=== PATIENT | female | born 1950 | race Caucasian/White ===

== ENCOUNTER 2017-10-27 07:11 | Day surgery (SDC) | END 2017-10-27 14:40 | disposition home or self-care (01) ==

== ENCOUNTER 2018-08-24 12:42 | Day surgery (SDC) | payer OTHER, MEDICAID ==
[2018-08-24] VITALS (17 sets, daily range): BP systolic 97–134; BP diastolic 46–73; PULSE 78–94; RESP 11–27; Ht 157.5 cm; Wt 48.4 kg
[~2018-08-24] VITALS: Ht 157.5 cm; Wt 48.4 kg
[~2018-08-24 12:42] MED LIST: CLINDAMYCIN 900 MG/D5W (PMX) 50 ML IVPB SCH; DILT240C62 PO; ISON100T4 PO; LACTATED RINGER'S 1,000 ML IV ONE; PYRI50CA PO; RANI150T5 PO; TOFA5TAB PO
[2018-08-24] MEDS ORDERED: TOFA5TAB PO (13:50)
[2018-08-24] MEDS ORDERED: LOSA50TA14 PO (13:50)
[2018-08-24] MEDS ORDERED: LIDOCAINE 1% (MPF) 30 ML INJ INJ ONE (14:21)
--- NOTE | 2018-08-24 14:50 | PREAC ---
Date/Time of Note Date/Time of Note DATE: 08/24/18 TIME: 14:41 Anesthesia Eval and Record Evaluation Time Pre-Procedure Interview DATE: 08/24/18 TIME: 14:41 Age 68 Sex female NPO: 8 hrs Preoperative diagnosis Rheumatoid Arthritis Deformity of left hand Planned procedure open reduction of left index, middle, ring and small fingers metacarpophalangeal joint dislocations with centralization/transfer of left index, middle, ring, small finger extensor tendons with collateral ligament repair/reconstruction of left index, middle, ring and small fingers at the metacarpophalangeal joints. Past Medical History Past Medical History: Includes Cardio: HTN Musculoskeletal: Rheumatoid arthritis GI: GERD Heme: Anemia Surgery & Anesthesia Issues No known issue Meds Anticoagulation: No Beta Himanshu within 24 hr: No Reason Beta Himanshu not given: Pt. not on B-Himanshu Reported Medications Losartan Potassium* (Losartan Potassium*) 50 Mg Tablet, 50 MG PO DAILY, TAB 08/24/18 Tofacitinib Citrate (XELJANZ) 5 Mg Tablet, 5 MG PO DAILY, TAB 08/24/18 Diltiazem Hcl* (Cartia XT*) 240 Mg Cap.sr.24h, 240 MG PO DAILY, #30 CAP 10/27/17 Ranitidine Hcl* (Ranitidine Hcl*) 150 Mg Tablet, 150 MG PO Q12, #60 TAB 10/27/17 Discontinued Reported Medications Tofacitinib Citrate (XELJANZ) 5 Mg Tablet, 5 MG PO BID, TAB 10/27/17 Pyridoxine Hcl* (Vitamin B-6*) 50 Mg Capsule, 50 MG PO DAILY, CAP 10/27/17 Isoniazid* (Isoniazid*) 100 Mg Tablet, 100 MG PO DAILY, TAB 10/27/17 Current Medications Clindamycin HCl/ Dextrose 50 ml @ 100 mls/hr PRE-OP IVPB ; Start 08/24/18 at 06:00; Stop 08/24/18 at 15:00 Lactated Ringer's 1,000 ml @ 20 mls/hr Q24H ONCE IV ; Start 08/24/18 at 06:00; Stop 08/25/18 at 05:59 Meds reviewed: Yes Allergies Coded Allergies: Penicillins (Verified Allergy, Unknown, RASH / SWELLING, 08/24/18) Allergies Reviewed: Yes Labs/Studies Labs Reviewed: Reviewed by anesthesiologist Result Diagram: 08/24/18 1330 08/24/18 1330 Laboratory Tests 08/24/18 13:30 test: N/A Studies: ECG (NSR) Pre-procedure Exam Last vitals Vital Signs Date Temp Pulse Resp B/P (MAP) Pulse Ox O2 O2 Flow FiO2 Time Delivery Rate 08/24/18 99.7 94 16 134/73 97 Room Air 13:51 (93) Airway: Adequate mouth opening, Adequate thyromental dist Mallampati: Mallampati II Teeth: Normal Lung: Normal Heart: Normal ASA Physical Status ASA physical status: 3 Emergency: None Planned Anesthetic General/MAC: LMA Nerve block: Brachial plexus (left) Planned Pain Management Single shot nerve block, Parenteral pain med Pre-operative Attestations Prior to commencing anesthesia and surgery, the patient was re-evaluated, there was verification of: *The patient's identity *The results of appropriate recent lab work and preoperative vital signs *The above evaluation not changing prior to induction *Anesthetic plan, risk benefits, alternative and complications discussed with patient/family; questions answered; patient/family understands, accepts and wishes to proceed. ESA SORIA MD August 24, 2018 14:50
[2018-08-24] MEDS ORDERED: CEFAZOLIN 1 GM INJ ONE (14:51)
[2018-08-24] MEDS ORDERED: PROPOFOL 20 ML ONE (14:51)
[2018-08-24] MEDS ORDERED: ROCURONIUM 50 MG INJ ONE (14:51)
[2018-08-24] MEDS ORDERED: FENTAnyl 50 MCG/ML VIAL ONE (14:52)
[2018-08-24] MEDS ORDERED: MIDAZOLAM 1 MG/ML 2 ML INJ ONE (14:52)
[2018-08-24] MEDS ORDERED: ROPIVACAINE 0.2% 20 ML VIAL ONE (14:52)
[2018-08-24] MEDS ORDERED: BUPIVACAINE 0.5% (SDV) 30 ML INJ ONE (15:00)
[2018-08-24] MEDS ORDERED: LIDOCAINE 1% (MPF) 30 ML INJ ONE (15:00)
[2018-08-24] MEDS ORDERED: DEXAMETHASONE 4 MG/ML 5 ML INJ ONE (16:39)
[2018-08-24] MEDS ORDERED: KETOROLAC 30 MG INJ ONE (16:39)
[2018-08-24] MEDS ORDERED: ONDANSETRON 4 MG INJ ONE (16:39)
[2018-08-24] MEDS ORDERED: METOCLOPRAMIDE 10 MG INJ ONE (16:40)
[2018-08-24] MEDS ORDERED: VANCOMYCIN 1 GM (PMX) 250 ML ONE (17:13)
--- NOTE | 2018-08-24 17:35 | HPN ---
Date/Time of Note Date/Time of Note DATE: 08/24/18 TIME: 17:35 Interval H&P Admission Note Pt. seen H&P reviewed: No system changes KALIN SHEN August 24, 2018 17:35
--- NOTE | 2018-08-24 17:37 | OPPN ---
Date/Time of Note Date/Time of Note DATE: 08/24/18 TIME: 17:35 Operative Report Preoperative Diagnosis Left middle ring and small finger MP joint dislocation with retained hardware and tendon subluxation Postoperative Diagnosis Left middle ring and small finger MP joint dislocation with retained hardware and tendon subluxation Operation/Procedure Performed Left middle ring and small finger MP joint removal of hardware, revision joint replacement and extensor tendon stabilization Surgeon see signature line assistant prosecuting attorney none Anesthesia: general Estimated blood loss: 0 - 10 ml's Transfusion Required none Specimen MP joint silicone implants Grafts/Implants none Complications none KALIN SHEN August 24, 2018 17:37
--- NOTE | 2018-08-24 17:44 | PAC ---
Date/Time of Note Date/Time of Note DATE: 08/24/18 TIME: 17:44 Post-Anesthesia Notes Post-Anesthesia Note Last documented vital signs Vital Signs Date Temp Pulse Resp B/P (MAP) Pulse Ox O2 O2 Flow FiO2 Time Delivery Rate 08/24/18 98.5 94 16 134/73 97 Room Air 17:38 (93) Activity: WNL Respiratory function: WNL Cardiovascular function: WNL Mental status: Baseline Pain reasonably controlled: Yes Hydration appropriate: Yes Nausea/Vomiting absent: Yes ESA SORIA MD August 24, 2018 17:44
--- NOTE | 2018-08-24 18:07 | OPR ---
DATE OF OPERATION: 08/24/2018 SURGEON: Kalin Guo MD ANESTHESIA: General. PREOPERATIVE DIAGNOSES: 1. Left middle finger MP joint dislocation with failed arthroplasty. 2. Left ring finger MP joint dislocation with failed arthroplasty. 3. Left small finger MP joint dislocation with failed arthroplasty. 4. Left middle finger extensor tendon subluxation. 5. Left ring finger extensor tendon subluxation. 6. Left small finger extensor tendon subluxation. POSTOPERATIVE DIAGNOSES: 1. Left middle finger MP joint dislocation with failed arthroplasty. 2. Left ring finger MP joint dislocation with failed arthroplasty. 3. Left small finger MP joint dislocation with failed arthroplasty. 4. Left middle finger extensor tendon subluxation. 5. Left ring finger extensor tendon subluxation. 6. Left small finger extensor tendon subluxation. PROCEDURE: 1. Removal of deep implant, left middle finger with open reduction of the MP joint dislocation. 2. Removal of deep hardware, left ring finger MP joint with open reduction of the MP joint dislocati on. 3. Removal of deep hardware, left small finger MP joint with open reduction of MP joint dislocation. 4. Revision arthroplasty, left middle finger MP joint. 5. Revision arthroplasty, left ring finger MP joint. 6. Revision arthroplasty, left small finger MP joint. 7. Centralization and stabilization of left middle finger extensor tendon. 8. Centralization and stabilization of left ring finger extensor tendon. 9. Centralization and stabilization of left small finger extensor tendon. OPERATIVE FINDINGS: Persistent joint subluxation/dislocation with failed MP joint arthroplasties of the middle, ring and small fingers with tendon subluxation in the setting of longstanding rheumatoid arthritis with longstanding deformity. INDICATION FOR PROCEDURE: This is a 68-year-old female with longstanding rheumatoid arthritis who barraza d previous surgery and has had multiple surgeries overall for deformity in the hands. She had a good result with the index finger and was improved with the middle, ring and small fingers, but still did not have normal function. She had persistent subluxation of the joints and difficulty with extensio n. We discussed the options, the patient elected to proceed with revision surgery, and additional tolbert rgery, understanding the risks and benefits. DESCRIPTION OF PROCEDURE: The patient was seen in the preoperative area and all further questions we re answered. Again, she gave informed consent, understanding the risks and benefits. She was taken to operative suite and placed in supine position. The anesthesia team performed a peripheral nerve b lock and the patient was placed under general anesthesia. The left lower extremity was prepped with ChloraPrep stick and draped in usual sterile fashion. Esmarch bandage was used to exsanguinate the e xtremity and tourniquet inflated to 250 mmHg. Of note, Ancef 2 grams IV was given prior to tournique t inflation. The previous surgical incision at the dorsal aspect of the left hand MP joint was utili zed with sharp dissection carried down through skin and subcutaneous tissue. Attention was first tur carmen to the small finger and the extensor tendon was found to be subluxated. The joint was subluxatin g as well and a dorsal capsulotomy was made and the previous silicone arthroplasty at the MP joint wa s identified and was removed. This was sent for specimen. Attention was then turned to revision art hroplasty. There was additional bone, which had formed after previous surgery and there was tension on the flexor tendons due to the chronic shortening deformity. Given this, a decision made to take a dditional bone from both the metacarpal as well as the proximal phalanx. An oscillating saw was used to remove cortical bone from both the proximal phalanx as well as the metacarpal and then Taz SB I broach for both the proximal phalanx as well as the metacarpal was used to size the implant to a do uble 0. The wound was irrigated and a Taz SBI double 0 implant was placed into the MP joint. Th e finger was ranged and was found to have improved range of motion. The attention was then turned to centralizing the extensor tendon. The tendon was brought central over the joint and the implant and a 4-0 Ethibond suture was used to secure the tendon to surrounding soft tissue and whatever remained of the sagittal bands in order to centralize the tendon. This was done with a 4-0 Ethibond suture. Attention was then turned to the ring finger and an identical procedure was performed. A dorsal cap sulotomy was made. The previous implant was removed and sent for specimen. An oscillating saw was u sed to remove bone from both the proximal phalanx and the metacarpal head and a broach was used to cr eate a path for the implant. A double 0 Taz SBI implant was sized down and was placed into the j oint. The extensor tendon was centralized and secured in that location using 4-0 Ethibond suture, tolbert tured to surrounding soft tissue and joint capsule. Attention was then turned to the middle finger. An identical procedure was performed. A dorsal capsulotomy was made and the previous implant was re moved and sent for specimen. A revision MP joint arthroplasty was performed with additional bone rem alyson using oscillating saw and a broach used to size up to a size 10. A Taz SBI size 10 was impl anted at the MP joint and the extensor tendon was then centralized and secured in that area using 4-0 Ethibond suture. The alignment of the digits was significantly improved after the procedures and th e fingers were ranged and found to come to full extension. The wound was copiously irrigated. Skin closed with 5-0 nylon. X-ray imaging showed appropriate hardware placement and bony alignment. Xero form was placed in the wound followed by sterile gauze, Webril, and a short arm volar splint to the t ips of the fingers of the fingers in full extension. Tourniquet deflated after 81 minutes. The barbara ent was awakened from anesthesia. She was taken to postoperative suite in stable condition, tolerate d procedure well without complication. SPECIMENS: MP joint implants, middle, ring and small fingers. ESTIMATED BLOOD LOSS: 5 mL. COUNTS: Sponge, instrument, needle counts correct. TOURNIQUET TIME: 81 minutes. CONDITION ON DISCHARGE: Stable. The patient was given a nonrefillable 5-day prescription for pain medication for surgery today. Dictated By: KALIN CARDOSO/JOANNA Conf#: [id number] DID#: [id number]
--- NOTE | 2018-08-25 07:07 | RADRPT ---
Vent Rate: 79 bpm RR Interval: 764 msec RI Interval: 138 msec QRS Duration: 73 msec QT Interval: 384 msec QTC Interval: 439 msec P-R-T Olpe: 74 - 52 - 52 degrees Sinus rhythm...normal Electronically Signed By: Cecil Yee
== END 2018-08-24 19:31 | disposition home or self-care (01) ==
LOC: SDS 12:42
PROVIDERS: ATTEND Orthopaedic Surgery Hand Surgery
DX: T84.89XA Other specified complication of internal orthopedic prosthetic devices, implants and grafts, initial encounter (principal); Y79.3 Surgical instruments, materials and orthopedic devices (including sutures) associated with adverse incidents; Y83.8 Other surgical procedures as the cause of abnormal reaction of the patient, or of later complication, without mention of misadventure at the time of the procedure; S66.317A Strain of extensor muscle, fascia and tendon of left little finger at wrist and hand level, initial encounter; S66.313A Strain of extensor muscle, fascia and tendon of left middle finger at wrist and hand level, initial encounter; S66.315A Strain of extensor muscle, fascia and tendon of left ring finger at wrist and hand level, initial encounter; X58.XXXA Exposure to other specified factors, initial encounter; I10 Essential (primary) hypertension
CPT/HCPCS: 26437; 71045; 73130; 80048; 85025; 85610; 85730; 88300; 93005; J0690; J1100; J1885; J2250; J2405; J2765; J2795; J3010; J3370